=== PATIENT | male | born 1990 | race Caucasian/White ===

== ENCOUNTER 2019-01-24 11:25 | Observation (INO) | payer OTHER, SELFPAY ==
[2019-01-24] VITALS (11 sets, daily range): BP systolic 102–142; BP diastolic 61–91; PULSE 72–86; RESP 16–20; TEMP 36.6–39.2; O2SAT 93–100; BMI 29.5
--- NOTE | 2019-01-24 11:43 | CT_ITS ---
STUDY: CT ABDOMEN AND PELVIS WITH CONTRAST REASON FOR EXAM: Male, 28 years old. Right lower quadrant pain. RADIATION DOSAGE (If Supplied By Facility): CTDIvol = ( 13.88 ) mGy, DLP = ( 976.87 ) mGycm TECHNIQUE: Transaxial images were obtained from the dome of the diaphragm to the symphysis pubis without oral contrast. Isovue 370 100ml IV was administered. Sagittal and coronal images were reconstructed. Individualized dose optimization techniques were used for this CT. COMPARISON: None. FINDINGS: The visualized lung bases are unremarkable. The visualized portions of the heart are within normal limits. Normal liver. Normal gallbladder and extrahepatic biliary system. Normal spleen. Normal pancreas. Normal bilateral adrenal glands. Normal right kidney. Normal left kidney. Normal visualized stomach. Normal small intestine. Normal colon. There is a tubular, thick-walled appendix (>7mm), consistent with acute appendicitis. Normal abdominal aorta. Normal inferior vena cava. Normal retroperitoneum. Normal urinary bladder. Normal abdominal wall. Normal osseous structures. CT/Abdomen/Pelvis W IV Cont ONLY IMPRESSION: Acute appendicitis. N.B. : The above information has been verbally conveyed by Donna Vega to Law Concepcion MD, on 01/24/2019 13:00:27 (ET). Electronically Signed: Donna Vega, at 13:02 EDT Tel , Service support ,
--- NOTE | 2019-01-24 11:45 | ED.VIS.GEN ---
History of Present Illness Chief Complaint: Abd Pain Informant: Patient Onset: Yesterday Context: Gradual Onset Timing: Continuous Quality: ache Location: lower abd Current Severity: Moderate Maximum Severity: Moderate Worsened by: bumps in road during car ride to ER Relieved by: nothing; tried gas-X Associated Symptoms: n/v Narrative: Healthy 28-year-old male started having abdominal discomfort last night, progressed this morning along with nausea and vomiting. No radiation into the back. No migration of pain. Pain is across his lower abdomen, but much worse in the right lower quadrant. No history of any abdominal surgeries. No urinary symptoms. No diarrhea. No fevers or chills. Past Medical History - Allergies and Home Meds Allergies/Adverse Reactions: Allergies No Known Allergies Allergy (Verified 01/24/19 11:28) Primary Care Physician: NOT,DEFINED [NON-STAFF] - Past Medical History: None Surgical History: no surgical history Smoking Status: Never smoker Alcohol: Occasional Drugs: None Review of Systems General: Reports: Malaise Eyes: Denies: Visual changes - bilaterally, Diplopia ENT: Denies: Rhinorrhea, Sore throat Cardiovascular: Denies: Chest pain, Palpitations Respiratory: Denies: Dyspnea, Cough, Dyspnea on exertion Gastrointestinal: Reports: Abdominal pain, Nausea, Vomiting Genitourinary: Denies: Dysuria, Hematuria, Frequency Musculoskeletal: Denies: Back pain, Extremity Pain Skin: Denies: Rash, Wounds Neurological: Denies: Headache, Weakness, Numbness Physical Exam Vital Signs/Narrative: Vital Signs Temp Pulse Resp BP Pulse Ox 01/24/19 11:26 98 F 82 20 H 128/68 H 99 Inital Vital Signs reviewed: Yes General: Well nourished, Well developed, No Acute Distress - but appears malaised Head: Normocephalic, Atraumatic Eyes: Perrl, EOMI ENT: Moist mucous membranes, No rhinorrhea Neck: Supple, Nontender Cardiovascular: Regular rate, Regular rhythm, No murmurs Respiratory: No distress, CTA bilaterally, Chest nontender Abdomen: Soft, Nondistended, Normal bowel sounds, Tender - Right lower quadrant moderate-severe localized tenderness at McBurney's point. No rebound tenderness. Negative heel tap. Negative Rovsing, psoas, obturator signs, negative Payan's., Guarding - Voluntary, right lower quadrant. Negative for: Mass, Inguinal hernia Back: Nontender, Normal Inspection. Negative for: CVA tenderness Extremities: Nontender, No edema Skin: Normal color, No rash, No Trauma, - - dark erythema to left flank/hip w/o purpura/ecchymosis, pt states this has been there for a long time and is likely related to sun exposure while working outside; no berumen-fox sign. Neurological: Alert, Oriented x3, Cranial nerves II-XII grossly intact, Normal Strength, Normal Sensation Psychological: Normal affect, Normal Mood Diagnostic/Tx/Re-eval Impressions Abdomen/Pelvis CT 01/24/19 11:43 IMPRESSION: Acute appendicitis. N.B. : The above information has been verbally conveyed by Donna Vega to Law Concepcion MD, on 01/24/2019 13:00:27 (ET). Electronically Signed: Donna Vega, at 13:02 EDT Tel , Service support , ADDENDUM: 01/24/19 1309 IMPRESSION: Acute appendicitis. N.B. : The above information has been verbally conveyed by Donna Vega to Law Concepcion MD, on 01/24/2019 13:00:27 (ET). Electronically Signed: Donna Vega, at 13:02 EDT Tel , Service support , 01/24/19 11:43 Abdomen/Pelvis W IV Cont ONLY [CT] Stat Laboratory Results 01/24/19 01/24/19 01/24/19 11:45 11:45 12:43 WBC 15.1 H RBC 5.01 Hgb 15.6 Hct 45.0 MCV 89.8 MCH 31.1 MCHC 34.7 RDW 13.0 RDW Differential 41.9 Plt Count 280 MPV 9.1 Immature Gran % (Auto) 0.200 Neut % (Auto) 80.6 H Lymph % (Auto) 14.0 L [place] % (Auto) 5.0 Eos % (Auto) 0.1 Baso % (Auto) 0.1 Absolute Neuts (auto) 12.2 H Absolute Lymphs (auto) 2.11 Total Counted Not Reportable Sodium 138 Potassium 3.8 Chloride 106 Carbon Dioxide 26.0 Anion Gap 6 BUN 14 Creatinine 0.84 Estim Creat Clear Calc 128.59 Est GFR (MDRD) Af Amer 138 Est GFR (MDRD) Non-Af 114 BUN/Creatinine Ratio 16.7 Glucose 105 Calcium 8.9 Total Bilirubin 0.70 AST 19 ALT 58 Alkaline Phosphatase 76 Total Protein 7.6 Albumin 4.2 Globulin 3.4 Albumin/Globulin Ratio 1.2 Urine Color Yellow Urine Clarity Clear Urine pH 7.0 Ur Specific [place] 1.005 Urine Protein Negative Urine Glucose (UA) Normal Urine Ketones Negative Urine Occult Blood Negative Urine Nitrite Negative Urine Bilirubin Negative Urine Urobilinogen Normal Ur Leukocyte Esterase Negative Urine RBC 0 SEEN Urine WBC 0 SEEN Ur Squamous Epith Cells 0 SEEN Urine Bacteria RARE Urine Mucus 0 SEEN - Medical Decision Making CT shows acute appendicitis, consistent with his clinical exam. His white blood count is 15.1. He was given a couple doses of pain medication, he does not have peritoneal signs at this time, however I discussed with surgery who will evaluate. Unasyn given and he has been maintained n.p.o. Of note, radiology report states that he spoke with me half an hour prior to this note; unfortunately that was not the case. He talked to my colleague, who let me know immediately upon returning from a different patient evaluation. - Critical Care Time Critical care time (excluding procedures): 30-74 minutes - 31, Discussing w/Patient &/or Family/Project Mgr, Discussing w/Consultants, Arranging Admission or Transfer, Performing Direct Patient Care at Bedside ED Disposition - Plan for ED Patient: Disposition: Acute Care Hospital [facility] Diagnosis: Acute appendicitis
--- NOTE | 2019-01-24 11:49 | ED.DCSUM_ITS ---
History of Present Illness Chief Complaint: Abd Pain Informant: Patient Onset: Yesterday Context: Gradual Onset Timing: Continuous Quality: ache Location: lower abd Current Severity: Moderate Maximum Severity: Moderate Worsened by: bumps in road during car ride to ER Relieved by: nothing; tried gas-X Associated Symptoms: n/v Narrative: Healthy 28-year-old male started having abdominal discomfort last night, progressed this morning along with nausea and vomiting. No radiation into the back. No migration of pain. Pain is across his lower abdomen, but much worse in the right lower quadrant. No history of any abdominal surgeries. No urinary symptoms. No diarrhea. No fevers or chills. Past Medical History - Allergies and Home Meds Allergies/Adverse Reactions: Allergies No Known Allergies Allergy (Verified 01/24/19 11:28) Primary Care Physician: NOT,DEFINED [NON-STAFF] - Past Medical History: None Surgical History: no surgical history Smoking Status: Never smoker Alcohol: Occasional Drugs: None Review of Systems General: Reports: Malaise Eyes: Denies: Visual changes - bilaterally, Diplopia ENT: Denies: Rhinorrhea, Sore throat Cardiovascular: Denies: Chest pain, Palpitations Respiratory: Denies: Dyspnea, Cough, Dyspnea on exertion Gastrointestinal: Reports: Abdominal pain, Nausea, Vomiting Genitourinary: Denies: Dysuria, Hematuria, Frequency Musculoskeletal: Denies: Back pain, Extremity Pain Skin: Denies: Rash, Wounds Neurological: Denies: Headache, Weakness, Numbness Physical Exam Vital Signs/Narrative: Vital Signs Temp Pulse Resp BP Pulse Ox 01/24/19 11:26 98 F 82 20 H 128/68 H 99 Inital Vital Signs reviewed: Yes General: Well nourished, Well developed, No Acute Distress - but appears malaised Head: Normocephalic, Atraumatic Eyes: Perrl, EOMI ENT: Moist mucous membranes, No rhinorrhea Neck: Supple, Nontender Cardiovascular: Regular rate, Regular rhythm, No murmurs Respiratory: No distress, CTA bilaterally, Chest nontender Abdomen: Soft, Nondistended, Normal bowel sounds, Tender - Right lower quadrant moderate-severe localized tenderness at McBurney's point. No rebound tenderness. Negative heel tap. Negative Rovsing, psoas, obturator signs, negative Payan's., Guarding - Voluntary, right lower quadrant. Negative for: Mass, Inguinal hernia Back: Nontender, Normal Inspection. Negative for: CVA tenderness Extremities: Nontender, No edema Skin: Normal color, No rash, No Trauma, - - dark erythema to left flank/hip w/o purpura/ecchymosis, pt states this has been there for a long time and is likely related to sun exposure while working outside; no berumen-fox sign. Neurological: Alert, Oriented x3, Cranial nerves II-XII grossly intact, Normal Strength, Normal Sensation Psychological: Normal affect, Normal Mood Diagnostic/Tx/Re-eval Impressions Abdomen/Pelvis CT 01/24/19 11:43 IMPRESSION: Acute appendicitis. N.B. : The above information has been verbally conveyed by Donna Vega to Law Concepcion MD, on 01/24/2019 13:00:27 (ET). Electronically Signed: Donna Vega, at 13:02 EDT Tel , Service support , ADDENDUM: 01/24/19 1309 IMPRESSION: Acute appendicitis. N.B. : The above information has been verbally conveyed by Donna Vega to Law Concepcion MD, on 01/24/2019 13:00:27 (ET). Electronically Signed: Donna Vega, at 13:02 EDT Tel , Service support , 01/24/19 11:43 Abdomen/Pelvis W IV Cont ONLY [CT] Stat Laboratory Results 01/24/19 01/24/19 01/24/19 11:45 11:45 12:43 WBC 15.1 H RBC 5.01 Hgb 15.6 Hct 45.0 MCV 89.8 MCH 31.1 MCHC 34.7 RDW 13.0 RDW Differential 41.9 Plt Count 280 MPV 9.1 Immature Gran % (Auto) 0.200 Neut % (Auto) 80.6 H Lymph % (Auto) 14.0 L [place] % (Auto) 5.0 Eos % (Auto) 0.1 Baso % (Auto) 0.1 Absolute Neuts (auto) 12.2 H Absolute Lymphs (auto) 2.11 Total Counted Not Reportable Sodium 138 Potassium 3.8 Chloride 106 Carbon Dioxide 26.0 Anion Gap 6 BUN 14 Creatinine 0.84 Estim Creat Clear Calc 128.59 Est GFR (MDRD) Af Amer 138 Est GFR (MDRD) Non-Af 114 BUN/Creatinine Ratio 16.7 Glucose 105 Calcium 8.9 Total Bilirubin 0.70 AST 19 ALT 58 Alkaline Phosphatase 76 Total Protein 7.6 Albumin 4.2 Globulin 3.4 Albumin/Globulin Ratio 1.2 Urine Color Yellow Urine Clarity Clear Urine pH 7.0 Ur Specific [place] 1.005 Urine Protein Negative Urine Glucose (UA) Normal Urine Ketones Negative Urine Occult Blood Negative Urine Nitrite Negative Urine Bilirubin Negative Urine Urobilinogen Normal Ur Leukocyte Esterase Negative Urine RBC 0 SEEN Urine WBC 0 SEEN Ur Squamous Epith Cells 0 SEEN Urine Bacteria RARE Urine Mucus 0 SEEN - Medical Decision Making CT shows acute appendicitis, consistent with his clinical exam. His white blood count is 15.1. He was given a couple doses of pain medication, he does not have peritoneal signs at this time, however I discussed with surgery who will evaluate. Unasyn given and he has been maintained n.p.o. Of note, radiology report states that he spoke with me half an hour prior to this note; unfortunately that was not the case. He talked to my colleague, who let me know immediately upon returning from a different patient evaluation. - Critical Care Time Critical care time (excluding procedures): 30-74 minutes - 31, Discussing w/Patient &/or Family/Fur Dyer, Discussing w/Consultants, Arranging Admission or Transfer, Performing Direct Patient Care at Bedside ED Disposition - Plan for ED Patient: Disposition: Acute Care Hospital [facility] Diagnosis: Acute appendicitis
[2019-01-24] MEDS: 0.9% Normal Saline 1,000 ML 1000 ML IV (11:54)
[2019-01-24] MEDS: Morphine 4 MG/ML Syringe IV ×2 (11:54→12:58)
[2019-01-24] MEDS: Ondansetron 4 MG/2 ML Vial IV (11:54)
[2019-01-24 12:01] LABS: Absolute Lymphocyte Count 2.11 X10^3/ul (0.83-4.51); Absolute Neutrophil Count 12.2 X10^3/uL (2.0-7.7); Basophil# 0.01 X10^3/uL; Basophil% 0.1 % (0-1); Eosinophil# 0.02 X10^3/uL; Eosinophils% 0.1 % (0-5); Hemoglobin 15.6 g/dl (13.0-16.5); Lymphocyte # 2.11 X10^3/ul (4.0); Mean Corp Hgb Conc 34.7 g/gl (32-36); Mean Corpuscular Hgb 31.1 pg (27.0-32.0); Mean Corpuscular Volume 89.8 fL (80-94); Mean Platelet Vol. 9.1 fl (6.2-12.0); Monocyte# 0.76 X10^3/uL; Neutrophil # 12.15 X10^3/uL (2.7-7.7); Neutrophil % 80.6 % (47-70); POSITIVE COUNT NO; POSITIVE DIFFERENTIAL NO; POSITIVE MORPHOLOGY NO; Platelet Count 280 K/mm3 (150-450); RBC Distribution Width SD 41.9 fl (35.1-43.9); Red Blood Count 5.01 M/mm3 (4.6-6.2); White Blood Count 15.1 K/mm3 (4.4-11.0)
[2019-01-24 12:11] LABS: ALB/GLOB Ratio 1.2 RATIO (0.9-2.4); AST(SGOT) 19 U/L (15-37); Alanine Aminotransfer ALT/SGPT 58 U/L (16-61); Albumin, Serum 4.2 g/dL (3.2-5.0); Alkaline Phosphatase 76 U/L (45-117); Anion Gap 6 (5-15); BUN 14 mg/dL (7-18); BUN/Creat Ratio 16.7 RATIO (10-20); Calcium,Total 8.9 mg/dL (8.5-10.1); Chloride 106 mmol/L (98-107); Creatinine, Serum 0.84 mg/dL (0.70-1.30); EST Glomerular Filtration Rate 114 mL/min (>60); Est Glom Filt Rate - Afr Amer 138 mL/min (>60); Estimated Creatinine Clearance 128.59 ml/min; Globulin 3.4 g/dL (2.2-4.2); Glucose 105 mg/dL (74-106); Potassium 3.8 mmol/L (3.5-5.1); Protein, Total 7.6 g/dL (6.4-8.2); Sodium Level 138 mmol/L (136-145)
--- NOTE | 2019-01-24 12:41 | ED.RN ---
PT STATES MORPHINE WAS NOT EFFECTIVE, DR. PARKER MADE AWARE.
[2019-01-24 12:48] LABS: Mucous, Urine 0 SEEN /hpf (<or=2+); Red Blood Cells-Urine 0 SEEN /hpf (0-5); Squamous Epithelial Cells - UA 0 SEEN /hpf (0-5); White Blood Cells 0 SEEN /hpf (0-5)
[2019-01-24 12:55] LABS: Color, Urine Yellow (Yellow); Glucose, Dipstick Normal (Normal); Ketone-Dipstick Negative (Negative); Leukocyte Esterase-Dipstick Negative /ul (Negative); Nitrite-Dipstick Negative (Negative); Occult Blood-Urine Negative /ul (Negative); Protein-Dipstick Negative (Negative); Specific Gravity, Urine 1.005 (1.002-1.030); Urine Bilirubin Dipstick Negative (Negative); Urine Clarity Clear (Clear); Urine Urobilinogen Normal (Normal)
[2019-01-24 13:00] LABS: Bacteria RARE /hpf (None Seen)
--- NOTE | 2019-01-24 14:07 | PCM.HP.STD ---
History of Present Illness Date of Admission: 01/24/19 The patient is a 28 year old M presents to the ER due to right lower quadrant pain which started last night about 7 PM got worse 11. Patient was able to sleep after that however when he woke up he had still had right lower quadrant pain is a 6-7/10. Patient did have nausea and vomiting and sweating last night. Patient states last time he ate was 10 AM piece of toast. Patient does have a leukocytosis of [address] abdomen pelvis was done which was consistent with acute appendicitis. Past Medical History Allergies No Known Allergies Allergy (Verified 01/24/19 11:28) Home Medications: Ambulatory Orders Medication Instructions Recorded NK 06/17/18 Surgical History: - - [place] teeth Psychiatric History: No pertinent psych hx Smoking Status: Never smoker Alcohol: Occasional Drugs: None - *Family History Maternal History Items: No pertinent history Review of Systems Cardiovascular: Denies: Chest Pain Respiratory: Denies: Shortness of Breath Gastrointestinal: Reports: Abdominal Pain VTE Information - Inpt Only VTE Present on Admission: Yes VTE Mechan Device Prophylaxis: SCD's Patient Problems: Active and Suspected Problems (Last Reviewed 06/17/18 @ 10:45 by Unique Hernandez) Acute appendicitis (Acute) - Physical Exam General: Alert, Oriented x3, Cooperative, No apparent distress HEENT: Atraumatic Lungs: Normal air movement Cardiovascular: Regular rate Abdomen: Soft, Non-Distended, Tender - Right lower quadrant greater than left lower quadrant, equivocal rebound, no guarding Extremities: No clubbing, No cyanosis, No edema Neurological: Cranial nerves II-XII grossly intact Psych/Mental Status: Normal Affect Vital Signs Temp Pulse Resp BP Pulse Ox 99.2 F H 72 18 141/91 H 98 01/24/19 13:50 01/24/19 14:04 01/24/19 14:04 01/24/19 14:04 01/24/19 14:04 Oxygen Delivery Method Room Air Weight: 200 lb Body Mass Index (BMI) 29.5 Laboratory Tests Past 24 Hrs 01/24/19 01/24/19 01/24/19 11:45 11:45 12:43 WBC 15.1 H RBC 5.01 Hgb 15.6 Hct 45.0 MCV 89.8 MCH 31.1 MCHC 34.7 RDW 13.0 RDW Differential 41.9 Plt Count 280 MPV 9.1 Immature Gran % (Auto) 0.200 Neut % (Auto) 80.6 H Lymph % (Auto) 14.0 L [place] % (Auto) 5.0 Eos % (Auto) 0.1 Baso % (Auto) 0.1 Absolute Neuts (auto) 12.2 H Absolute Lymphs (auto) 2.11 Total Counted Not Reportable Sodium 138 Potassium 3.8 Chloride 106 Carbon Dioxide 26.0 Anion Gap 6 BUN 14 Creatinine 0.84 Estim Creat Clear Calc 128.59 Est GFR (MDRD) Af Amer 138 Est GFR (MDRD) Non-Af 114 BUN/Creatinine Ratio 16.7 Glucose 105 Calcium 8.9 Total Bilirubin 0.70 AST 19 ALT 58 Alkaline Phosphatase 76 Total Protein 7.6 Albumin 4.2 Globulin 3.4 Albumin/Globulin Ratio 1.2 Urine Color Yellow Urine Clarity Clear Urine pH 7.0 Ur Specific [place] 1.005 Urine Protein Negative Urine Glucose (UA) Normal Urine Ketones Negative Urine Occult Blood Negative Urine Nitrite Negative Urine Bilirubin Negative Urine Urobilinogen Normal Ur Leukocyte Esterase Negative Urine RBC 0 SEEN Urine WBC 0 SEEN Ur Squamous Epith Cells 0 SEEN Urine Bacteria RARE Urine Mucus 0 SEEN Assessment/Plan All Active Problems (Last Reviewed 06/17/18 @ 10:45 by Unique Hernandez) Acute appendicitis (Acute) Acute bacterial conjunctivitis (Acute) 28-year-old male with acute appendicitis 1. Discussed procedure laparoscopic appendectomy, possible open, possible bowel resection along with the risk but not limited to bleeding, infection/abscess, injury to another organ (small bowel, colon, etc.), adhesion, hernia at incision sites, and anesthesia. Patient and his mother had no further questions at this time and agreed to proceed. Ashley Hightower M.D. Pager: [phone] [facility] [address] [place] [address], [address] [place] [address] Office: [phone]
--- NOTE | 2019-01-24 14:10 | HP.PCM_ITS ---
History of Present Illness Date of Admission: 01/24/19 The patient is a 28 year old M presents to the ER due to right lower quadrant pain which started last night about 7 PM got worse 11. Patient was able to sleep after that however when he woke up he had still had right lower quadrant pain is a 6-7/10. Patient did have nausea and vomiting and sweating last night. Patient states last time he ate was 10 AM piece of toast. Patient does have a leukocytosis of [address] abdomen pelvis was done which was consistent with acute appendicitis. Past Medical History Allergies No Known Allergies Allergy (Verified 01/24/19 11:28) Home Medications: Ambulatory Orders Medication Instructions Recorded NK 06/17/18 Surgical History: - - [place] teeth Psychiatric History: No pertinent psych hx Smoking Status: Never smoker Alcohol: Occasional Drugs: None - *Family History Maternal History Items: No pertinent history Review of Systems Cardiovascular: Denies: Chest Pain Respiratory: Denies: Shortness of Breath Gastrointestinal: Reports: Abdominal Pain VTE Information - Inpt Only VTE Present on Admission: Yes VTE Mechan Device Prophylaxis: SCD's Patient Problems: Active and Suspected Problems (Last Reviewed 06/17/18 @ 10:45 by Unique Hernandez) Acute appendicitis (Acute) - Physical Exam General: Alert, Oriented x3, Cooperative, No apparent distress HEENT: Atraumatic Lungs: Normal air movement Cardiovascular: Regular rate Abdomen: Soft, Non-Distended, Tender - Right lower quadrant greater than left lower quadrant, equivocal rebound, no guarding Extremities: No clubbing, No cyanosis, No edema Neurological: Cranial nerves II-XII grossly intact Psych/Mental Status: Normal Affect Vital Signs Temp Pulse Resp BP Pulse Ox 99.2 F H 72 18 141/91 H 98 01/24/19 13:50 01/24/19 14:04 01/24/19 14:04 01/24/19 14:04 01/24/19 14:04 Oxygen Delivery Method Room Air Weight: 200 lb Body Mass Index (BMI) 29.5 Laboratory Tests Past 24 Hrs 01/24/19 01/24/19 01/24/19 11:45 11:45 12:43 WBC 15.1 H RBC 5.01 Hgb 15.6 Hct 45.0 MCV 89.8 MCH 31.1 MCHC 34.7 RDW 13.0 RDW Differential 41.9 Plt Count 280 MPV 9.1 Immature Gran % (Auto) 0.200 Neut % (Auto) 80.6 H Lymph % (Auto) 14.0 L [place] % (Auto) 5.0 Eos % (Auto) 0.1 Baso % (Auto) 0.1 Absolute Neuts (auto) 12.2 H Absolute Lymphs (auto) 2.11 Total Counted Not Reportable Sodium 138 Potassium 3.8 Chloride 106 Carbon Dioxide 26.0 Anion Gap 6 BUN 14 Creatinine 0.84 Estim Creat Clear Calc 128.59 Est GFR (MDRD) Af Amer 138 Est GFR (MDRD) Non-Af 114 BUN/Creatinine Ratio 16.7 Glucose 105 Calcium 8.9 Total Bilirubin 0.70 AST 19 ALT 58 Alkaline Phosphatase 76 Total Protein 7.6 Albumin 4.2 Globulin 3.4 Albumin/Globulin Ratio 1.2 Urine Color Yellow Urine Clarity Clear Urine pH 7.0 Ur Specific [place] 1.005 Urine Protein Negative Urine Glucose (UA) Normal Urine Ketones Negative Urine Occult Blood Negative Urine Nitrite Negative Urine Bilirubin Negative Urine Urobilinogen Normal Ur Leukocyte Esterase Negative Urine RBC 0 SEEN Urine WBC 0 SEEN Ur Squamous Epith Cells 0 SEEN Urine Bacteria RARE Urine Mucus 0 SEEN Assessment/Plan All Active Problems (Last Reviewed 06/17/18 @ 10:45 by Unique Hernandez) Acute appendicitis (Acute) Acute bacterial conjunctivitis (Acute) 28-year-old male with acute appendicitis 1. Discussed procedure laparoscopic appendectomy, possible open, possible bowel resection along with the risk but not limited to bleeding, infection/abscess, injury to another organ (small bowel, colon, etc.), adhesion, hernia at incision sites, and anesthesia. Patient and his mother had no further questions at this time and agreed to proceed. Ashley Hightower M.D. Pager: [phone] [facility] [address] [place] [address], [address] [place] [address] Office: [phone]
[2019-01-24] MEDS: Bupivacaine Mpf 0.5% 30 ML VIAL (17:05)
--- NOTE | 2019-01-24 17:12 | PCM.OPRPT ---
Report of Operation Date of Procedure: 01/24/19 Pre-Operative Diagnosis: Acute appendicitis Post-Operative Diagnosis: Same Surgery/Procedure Performed:: Laparoscopic appendectomy Type of Anesthesia:: General/Supplemental Anesthesiologist: Natasha Bowman Special Medications: Zosyn 3.375 g IV given in ER for acute appendicitis Specimen's removed: Appendix Estimated Blood Loss (mL): <10 cc Fluids Replaced: 1000 cc Description of Procedure: Indications: 28-year-old male presented to the ER with new right lower quadrant pain this morning. On workup he was found to have acute appendicitis on CT and a leukocytosis of 15. Patient was started on antibiotics in the ER for acute appendicitis-Zosyn 3.375 g IV x1 Description of the procedure: The patient was placed on operating table in supine position. General anesthesia was induced. A timeout was completed verifying correct patient, procedure, sacrum position and special, prior to beginning procedure. A Langley catheter and orogastric tube placed. Abdomen was prepped and draped in usual sterile fashion. Incision was made in the natural skin line above the umbilicus with a 15 blade scalpel. The fascia was elevated and incised. Entry into the peritoneum was confirmed visually and no bowel was noted in the vicinity of the incision. The Thompson trocar was placed under direct vision. Abdomen insufflated with a pressure of 12-15 mmHg. Patient tolerated insertion well. The scope was inserted and the abdomen inspected. No injuries from initial trocar placement were noted. Minimal amount of fluid was seen in the right lower quadrant. An direct visualization 2 -5 mm trocars were placed one above the symphysis pubis and below the hairline and one in the left lower quadrant lateral to the rectus muscle. Care is taken to avoid injury to the bladder and inferior epigastric vessels. The table was placed in Trendelenburg position with the right side elevated. The appendix was grasped with atraumatic grasper and elevated. It was noted to be inflamed. A window was developed in the mesoappendix at the point between the base of the appendix and the cecum. An endoscopic 45 mm linear cutting stapler blue load was then used to divide and staple the base of the appendix. It was reloaded with a vascular load and the mesoappendix similarly divided. The appendix was withdrawn into the Thompson trocar after being placed endoscopically retrieval bag. Appendix was sent to pathology. The appendiceal stump was then irrigated and hemostasis was assured. Fluid was suctioned no other pathology was identified. Secondary trochars were removed under direct visualization. No bleeding was noted trocar sites. The laparoscope withdrawn and the umbilical trocar removed. The abdomen was allowed to collapse. Local anesthesia of 20 mL of 0.5% Marcaine was used at the incision sites. The umbilical trocar site was closed with the [id number] 0 Vicryl suture. The skin was closed up to clear sutures of 4-0 Monocryl and Steri-Strips. The patient was extubated. The patient tolerated the procedure well and was taken to the postanesthesia care unit in satisfactory condition. - Complications None - Admit VTE Documentation VTE Present on Admission: Yes VTE Mechan Device Prophylaxis: SCD's
--- NOTE | 2019-01-24 17:31 | PCM.DC.APPY ---
Discharge Diet: Light diet - advance as tolerated Discharge Activity: May not drive while taking narcotic pain medications. May shower in (days): 1 Lifting Restrictions: No lifting greater than 20 pounds x 4 weeks, no strenuous exercise for 8 we Call your doctor if your incision/area has: Continuous Slow Oozing, Sudden Increased Bleeding, Increased Pain/ Swelling, Increased Redness, Foul Smelling Discharge, Swelling at the incision site Call your doctor if you observe: Fever of 101 or Higher Remove Dressing in (days):: 2 Additional Instructions: Okay to take ibuprofen 400-600 mg PO q6hr PRN along with the hydrocodone. Avoid Tylenol since there is already Tylenol in the hydrocodone. Take all pain meds with food. Hydrocodone can cause constipation recommend taking daily stool softener (i.e. Colace/docusate) while taking the pain meds. Recommend starting some MiraLAX if no bowel movement for 2 days if you regularly go daily. If still no bowel movement the following day recommend taking magnesium citrate half the bottle and waiting 4-6 hours if still no results take the other half the bottle. Medications to take at Discharge Hydrocodone Bitart/Apap 5-325 [[place] 5MG-325MG] 1 - 2 tablet PO Q6H PRN PRN 5 Days #25 tablet 01/24/19 Allergies/Adverse Reactions: Allergies No Known Allergies Allergy (Verified 01/24/19 11:28) The following prescriptions were given: Hydrocodone Bitart/Apap 5-325 [[place] 5MG-325MG] 1 - 2 tablet PO Q6H PRN PRN 5 Days #25 tablet PRN Reason: Pain Primary Care Physician: Care Physician,No Primary [Primary Care Provider] - Test Results: Test results from this visit will be discussed in further detail at your follow-up appointment, if applicable. Please Follow Up With: Ashley Hightower MD - After 5 PM/weekends call [phone] with any concerns When: Call the office [phone] for a follow-up appointment 2 weeks Proposed Discharge Date: 01/25/19
[2019-01-24] MEDS: Dextrose 5%-Lactated Ringers 1,000 ML 100 ML IV (18:37)
--- NOTE | 2019-01-24 19:05 | APP_PTH ---
PATIENT: SELINA RAMOS LOC: [facility] U#:[id number] AGE/SX: 28/M ROOM: [facility]212 RE01/24/[address]: Dr. Ashley Hightower MD : 1990 BED: 1 DIS: 01/25/2019 SPEC #: [id number] RECD: 01/25/19 07:26 STATUS: ISIDRO RERavindra #: [id number] SULAIMAN: 01/24/19 19:[address]: Ashley Hightower DEPT: SURGICAL PATHOLOGY RECD BY: Varun Allen ENTERED: 01/25/19 09:48 SP TYPE: APPENDIX OT DR: No Primary Care Phys Tissues: Appendix, NOS Procedures: Surgery Specimen Level III HEADER OPERATION: Laparoscopic appendectomy PRE-OP DIAGNOSIS: Acute appendicitis TISSUE SUBMITTED: Appendix MICROSCOPIC DIAGNOSIS Appendix: Acute appendicitis and periappendicitis. SJ:olga 01/26/19 MICROSCOPIC DESCRIPTION Slides are reviewed. GROSS DESCRIPTION Received is one container labeled with the patient's name and designated appendix. The specimen consists of a vermiform appendix measuring 8.5 cm in length and 1 cm in greatest diameter. No gross perforations are evident. Sections reveal a patent lumen. Cloth Shrinking Tester sections are submitted in one cassette. / AM:olga 01/25/19 TC:2 CPT: 83923
[2019-01-25] MEDS: HYDROcodone Bitartrate/Apap 5/325 Tablet PO ×2 (03:00→08:33)
[2019-01-25] MEDS: Dextrose 5%-Lactated Ringers 1,000 ML 100 ML IV (04:11)
[2019-01-25 04:30] VITALS: BP 122/68; PULSE 74; RESP 16; TEMP 36.6; O2SAT 97
--- NOTE | 2019-01-25 07:37 | PN.SURG_ITS ---
Patient Problems: Active and Suspected Problems (Last Reviewed 06/17/18 @ 10:45 by Unique Hernandez) Acute appendicitis (Acute) Subjective: Patient tolerated clears having a regular breakfast this morning, positive flatus, pain controlled - Physical Exam General: Alert, Oriented x3, Cooperative, No apparent distress HEENT: Atraumatic Cardiovascular: Regular rate Abdomen: Soft, Distended - Mild, Tender - Near incision appropriate, incision clean dry and intact -dressed Extremities: No clubbing, No cyanosis, No edema Vital Signs Temp Pulse Resp BP Pulse Ox 97.9 F 74 16 122/68 H 97 01/25/19 04:30 01/25/19 04:30 01/25/19 04:30 01/25/19 04:30 01/25/19 04:30 Oxygen Delivery Method Room Air Weight: 200 lb Body Mass Index (BMI) 29.5 Intake and Output for Last 24 Hours 01/23/19 01/24/19 01/25/19 23:59 23:59 23:59 Intake Total 1100 / 1100 1537 / 1537 Output Total 175 / 175 1300 / 1300 Balance 925 / 925 237 / 237 Laboratory Tests Past 24 Hrs 01/24/19 01/24/19 01/24/19 11:45 11:45 12:43 WBC 15.1 H RBC 5.01 Hgb 15.6 Hct 45.0 MCV 89.8 MCH 31.1 MCHC 34.7 RDW 13.0 RDW Differential 41.9 Plt Count 280 MPV 9.1 Immature Gran % (Auto) 0.200 Neut % (Auto) 80.6 H Lymph % (Auto) 14.0 L Sharp % (Auto) 5.0 Eos % (Auto) 0.1 Baso % (Auto) 0.1 Absolute Neuts (auto) 12.2 H Absolute Lymphs (auto) 2.11 Total Counted Not Reportable Sodium 138 Potassium 3.8 Chloride 106 Carbon Dioxide 26.0 Anion Gap 6 BUN 14 Creatinine 0.84 Estim Creat Clear Calc 128.59 Est GFR (MDRD) Af Amer 138 Est GFR (MDRD) Non-Af 114 BUN/Creatinine Ratio 16.7 Glucose 105 Calcium 8.9 Total Bilirubin 0.70 AST 19 ALT 58 Alkaline Phosphatase 76 Total Protein 7.6 Albumin 4.2 Globulin 3.4 Albumin/Globulin Ratio 1.2 Urine Color Yellow Urine Clarity Clear Urine pH 7.0 Ur Specific [place] 1.005 Urine Protein Negative Urine Glucose (UA) Normal Urine Ketones Negative Urine Occult Blood Negative Urine Nitrite Negative Urine Bilirubin Negative Urine Urobilinogen Normal Ur Leukocyte Esterase Negative Urine RBC 0 SEEN Urine WBC 0 SEEN Ur Squamous Epith Cells 0 SEEN Urine Bacteria RARE Urine Mucus 0 SEEN Medical Necessity - Tobacco Use Smoking Status: Never smoker Tobacco Use: Non-smoker Assessment/Plan All Active Problems (Last Reviewed 06/17/18 @ 10:45 by Unique Hernandez) Acute appendicitis (Acute) Acute bacterial conjunctivitis (Acute) 28-year-old male with acute appendicitis, postop day 1 lap scopic appendectomy 1. Patient is getting regular breakfast this morning as he tolerated clears. Patient tolerates p.o., pain remains controlled, ambulating and vital signs remained stable will DC today. Ashley Hightower M.D. Pager: [phone] [facility] [address] [place] [address], [address] [place] [address] Office: [phone]
[2019-01-25 08:19] VITALS: BP 122/71; PULSE 73; RESP 18; TEMP 36.8; O2SAT 96
[2019-01-25] MEDS: Docusate Sodium 100 MG Capsule PO (08:33)
== END 2019-01-25 09:48 | disposition home or self-care (01) ==
LOC: ED 13:50 → SDC 13:59 → AC 14:00 → MS2 16:19 → SDC 17:33
PROVIDERS: Admitting Provider Surgery; Emergency Provider Emergency Medicine; Visit Provider Surgery
PROC: 0DTJ4ZZ Resection of Appendix, Percutaneous Endoscopic Approach (ICD-10-PCS; CPT 44970; principal; 2019-01-24 18:45)
DX: K35.80 Unspecified acute appendicitis (principal)
CPT/HCPCS: 44970; 74177; 80053; 81001; 85025; 88304; 96361; 96374; 96375; 96376; 99218; 99284; J7030; Q9967; A4216; C1760; G0378; J0295; J2405

== ENCOUNTER → 2025-05-18 | Outpatient (CLI) | payer OTHER, SELFPAY ==
--- NOTE | 2025-05-18 13:00 | VAS_PTH ---
PATIENT: SELINA RAMOS [facility] U#:[id number] AGE/SX: 34/M ROOM: RE05/18/[address]: Dr. Weston Wilhelm MD : 1990 BED: DIS: 05/18/2025 SPEC #: [id number] RECD: 05/18/25 14:54 STATUS: ISIDRO RERavindra #: [id number] SULAIMAN: 05/18/25 13:[address]: Weston Wilhelm DEPT: SURGICAL PATHOLOGY RECD BY: Tim Bond ENTERED: 05/18/25 16:19 SP TYPE: VAS OTHR DR: No Primary Care Phys Tissues: A - Vas deferens, NOS Procedures: Surgery Specimen Level II HEADER OPERATION: Bilateral partial vasectomy PRE-OP DIAGNOSIS: Sterilization TISSUE SUBMITTED: A- Right vas deferens, B- Left vas deferens MICROSCOPIC DIAGNOSIS A. Vas deferens, right, sterilization, vasectomy: - Complete luminal cross-section confirmed. B. Vas deferens, left, sterilization, vasectomy: - Complete luminal cross-section confirmed. MICROSCOPIC DESCRIPTION Slides are reviewed. GROSS DESCRIPTION Received in 2 formalin containers labeled with the patient's name and date of . Designated as: A. R vas deferens is a 1.1 cm length by 0.3 cm in diameter ashley-white fibrotic and cylindrical portion of tissue. The specimen is inked black, sectioned and entirely submitted in 1 cassette. B. L vas deferens is a 0.8 cm in length by 0.3 cm in diameter ashley-white fibrotic and cylindrical portion of tissue. The specimen is inked orange, sectioned and entirely submitted in 1 cassette. MO 05/18/2025 CPT:35081q0
== END | disposition home or self-care (01) ==
PROVIDERS: Referring Provider Surgery; Visit Provider Surgery
DX: Z30.2 Encounter for sterilization (principal)
CPT/HCPCS: 88302

== ENCOUNTER → 2025-06-26 | Outpatient (CLI) | payer OTHER, SELFPAY | END | disposition home or self-care (01) | LOC: LABSPEC 11:52 | PROVIDERS: Referring Provider Surgery; Visit Provider Surgery | DX: Z98.52 Vasectomy status (principal) ==

== ENCOUNTER → 2025-06-27 | Outpatient (CLI) | payer OTHER, SELFPAY | END | disposition home or self-care (01) | LOC: LABSPEC 12:11 | PROVIDERS: Referring Provider Surgery; Visit Provider Surgery | DX: Z30.2 Encounter for sterilization (principal) ==